=== PATIENT | female | born 1980 | race African-American/Black ===

== ENCOUNTER 2016-05-20 10:50 | Emergency (ER) | payer BC | END 2016-05-20 13:29 | disposition left against medical advice (07) | LOC: ER 10:50 | DX: Z53.21 Procedure and treatment not carried out due to patient leaving prior to being seen by health care provider (principal) ==

== ENCOUNTER 2016-05-20 14:24 | Emergency (ER) | payer BC | END 2016-05-20 15:55 | disposition other institution (70) | LOC: ER 14:24 | DX: I63.9 Cerebral infarction, unspecified (principal); R53.1 Weakness; R20.9 Unspecified disturbances of skin sensation; R47.01 Aphasia; R47.1 Dysarthria and anarthria | CPT/HCPCS: 36415; 70450; 71010; 80047; 80053; 82553; 82947; 84484; 85014; 85025; 85610; 85730; 93005 ==